=== PATIENT | female | born 1995 | race African-American/Black ===

== ENCOUNTER 2016-11-22 19:22 | Emergency (ER) | payer OTHER ==
[~2016-11-22] VITALS: Ht 157.5 cm; Wt 97.5 kg
[~2016-11-22 19:22] MED LIST: AMOXICILLIN875 MG PO; MACROBID 100 M100 M1 PO; ZANTAC 150MG T150 M1 PO
[2016-11-22 19:29] VITALS: BP 126/81
[2016-11-22 21:43] LABS: URINE BILIRUBIN NEGATIVE (Negative); URINE BLOOD NEGATIVE (Negative); URINE COLOR YELLOW; URINE GLUCOSE-RANDOM* NEGATIVE (Negative); URINE KETONES NEGATIVE (Negative); URINE NITRITE NEGATIVE (Negative); URINE PROTEIN (DIPSTICK) NEGATIVE (Negative); URINE SPECIFIC GRAVITY 1.015 (1.003-1.035)
[2016-11-22] MEDS ORDERED: SENNA8.6 MG PO (21:57)
[2016-11-22] MEDS ORDERED: NORCO 5-325 TA1 EACH PO (21:57)
[2016-11-26 03:08] LABS: CHLAMYDIA TRACHOMATIS-PCR Negative (Negative); NEISSERIA GONORRHEA-PCR Negative (Negative)
== END 2016-11-22 22:00 | disposition home or self-care (01) ==
LOC: ER 19:22
PROVIDERS: Physician Assistant
DX: O20.0 Threatened abortion (principal); Z3A.01 Less than 8 weeks gestation of pregnancy; F17.210 Nicotine dependence, cigarettes, uncomplicated

== ENCOUNTER 2017-09-22 12:22 | Emergency (ER) | payer OTHER ==
[~2017-09-22] VITALS: Ht 154.9 cm; Wt 95.3 kg
--- NOTE | ~2017-09-22 | EKG ---
[address] [place] [address] ELECTROCARDIOGRAM REPORT Name: BERNARDINO CHO Room #: [facility] Rebecca#: [id number] Admission: 09/22/17 Attend Phys: Discharge: 09/22/17 Date of : [birth year] Report #: [id number] THIS REPORT FOR: //name// [facility] ED Test Date: 2017-09-22 Test Time: 12:53:59 Pat Name: BERNARDINO CHO Department: Room: Gender: F [employer]: VINCENT : 1995 Requested By: Jaycob Mathur Order Number: [id number] MD: Devin Amin Measurements Intervals [place] Rate: 76 P: 44 SC: 191 QRS: 46 QRSD: 92 T: 0 QT: 356 QTc: 401 Interpretive Statements Sinus rhythm Probable left atrial enlargement No previous ECG available for comparison Electronically Signed On 09-22-2017 17:48:27 CDT by Devin Amin [email or web address] <ELECTRONICALLY SIGNED> By: Devin Amin MD, [facility] 09/22/17 1748 [id number] Devin Amin MD, FACC /EPI
[~2017-09-22 12:22] MED LIST changes: +NORCO 5-325 TA1 EACH PO; +SENNA8.6 MG PO
[2017-09-22 13:37] LABS: ABSOLUTE NEUTROPHILS 7.1 thou/uL (1.4-8.2); BASOPHILS 0.3 % (0.0-2.0); EOSINOPHILS 0.8 % (0.0-3.0); HEMATOCRIT 38.9 % (37.0-47.0); HEMOGLOBIN 12.5 gm/dL (12.0-15.0); LYMPHOCYTES 21.8 % (24.0-44.0); MCH 27.1 pg (26.0-34.0); MCHC 32.1 g/dL (28.0-37.0); MCV 84.2 fL (80.0-100.0); MONOCYTES 4.8 % (1.0-8.0); PLATELET COUNT 235 thou/uL (150-400); POLYS 72.3 % (36.0-66.0); RBC 4.62 mil/uL (4.20-5.00); RDW 13.6 % (10.5-14.5); WBC 9.9 thou/uL (4.0-11.0)
[2017-09-22 14:22] LABS: ANION GAP 6 mmol/L (7-16); BUN 8 mg/dL (7-18); CALCIUM 9.1 mg/dL (8.5-10.1); CHLORIDE 106 mmol/L (98-107); CO2 24 mmol/L (21-32); CREATININE 0.6 mg/dL (0.6-1.0); GLUCOSE 151 mg/dL (74-106); POTASSIUM 3.7 mmol/L (3.5-5.1); SODIUM 136 mmol/L (136-145)
[2017-09-22 14:31] LABS: ALBUMIN 3.2 g/dL (3.4-5.0); LIPASE 60 U/L (73-393); SGOT 17 U/L (15-37); SGPT 29 U/L (30-65); TOTAL BILIRUBIN 0.2 mg/dL (<0.1-1.0); TOTAL PROTEIN 6.8 g/dL (6.4-8.2); TROPONIN-I < 0.04 ng/mL (<0.06)
[2017-09-22 14:54] LABS: URINE BILIRUBIN NEGATIVE (Negative); URINE BLOOD NEGATIVE (Negative); URINE CLARITY CLEAR; URINE COLOR YELLOW; URINE GLUCOSE-RANDOM* NEGATIVE (Negative); URINE KETONES NEGATIVE (Negative); URINE LEUKOCYTES-REFLEX NEGATIVE (Negative); URINE NITRITE-REFLEX NEGATIVE (Negative); URINE PROTEIN (DIPSTICK) NEGATIVE (Negative); URINE SPECIFIC GRAVITY 1.025 (1.005-1.035); URINE UROBILINOGEN 0.2 E.U./dl (0.2-1.0)
[2017-09-22] MEDS ORDERED: ZOFRAN ODT8 MG PO (15:01)
[2017-09-22 15:05] VITALS: BP 122/74
== END 2017-09-22 15:05 | disposition home or self-care (01) ==
LOC: ER 12:22
PROVIDERS: Physician Assistant
DX: R51 Headache (principal); R11.0 Nausea; R00.2 Palpitations; R42 Dizziness and giddiness; Z91.041 Radiographic dye allergy status

== ENCOUNTER 2018-07-16 11:41 | Emergency (ER) | payer OTHER ==
[~2018-07-16] VITALS: Ht 154.9 cm; Wt 95.3 kg
[~2018-07-16 11:41] MED LIST changes: +ZOFRAN ODT8 MG PO
[2018-07-16 13:07] LABS: ABSOLUTE NEUTROPHILS 7.1 thou/uL (1.4-8.2); BASOPHILS 0.4 % (0.0-2.0); EOSINOPHILS 0.6 % (0.0-3.0); HEMATOCRIT 38.9 % (37.0-47.0); LYMPHOCYTES 19.1 % (24.0-44.0); MCHC 33.5 g/dL (28.0-37.0); MCV 83.7 fL (80.0-100.0); MONOCYTES 4.5 % (1.0-8.0); PLATELET COUNT 230 thou/uL (150-400); POLYS 75.4 % (36.0-66.0); RBC 4.65 mil/uL (4.20-5.00); RDW 13.2 % (10.5-14.5); WBC 9.4 thou/uL (4.0-11.0)
[2018-07-16] MEDS ORDERED: MAGIC MOUTHWASH SWISH&SPIT (14:08)
[2018-07-16] MEDS ORDERED: IBUPROFEN 600600 M1 PO (14:08)
[2018-07-16 14:32] VITALS: BP 132/87
== END 2018-07-16 14:32 | disposition home or self-care (01) ==
LOC: ER 11:41
PROVIDERS: Nurse Practitioner
DX: R07.0 Pain in throat (principal); F17.210 Nicotine dependence, cigarettes, uncomplicated; Z91.041 Radiographic dye allergy status

== ENCOUNTER 2018-08-15 13:08 | Emergency (ER) | payer OTHER ==
[~2018-08-15] VITALS: Ht 152.4 cm; Wt 95.3 kg
[~2018-08-15 13:08] MED LIST changes: +IBUPROFEN 600600 M1 PO; +MAGIC MOUTHWASH SWISH&SPIT
[2018-08-15 13:11] VITALS: BP 139/93
[2018-08-15] MEDS ORDERED: TIZANIDINE HCL4 MG PO (13:47)
[2018-08-15] MEDS ORDERED: IBUPROFEN 600600 M1 PO (13:47)
[2018-08-15] MEDS ORDERED: PREDNISONE 20 M20 MG PO (13:47)
== END 2018-08-15 14:06 | disposition home or self-care (01) ==
LOC: ER 13:08
DX: M54.32 Sciatica, left side (principal); F17.210 Nicotine dependence, cigarettes, uncomplicated; Z91.041 Radiographic dye allergy status